=== PATIENT | female | born 1940 | race Caucasian/White ===

== ENCOUNTER 2018-07-19 09:04 | Day surgery (SDC) | payer MEDICARE, OTHER ==
[~2018-07-19 09:04] MED LIST: Midazolam 1 MG/ML 2 ML SDV ONE; Propofol 200 MG/20 ML SDV ONE; Sodium Chloride 0.9% 10 ML Syringe FLUSH PRN
[2018-07-19] MEDS: Lactated Ringers 1,000 ML IV SCH (09:55)
--- NOTE | 2018-07-19 10:21 | PCM.HPR ---
H & P Addendum review - H & P Addendum Review Date of Original H & P: 07/13/18 Date Reviewed: 07/19/18 Time Reviewed: 10:21 Patient was Examined: No Changes
[2018-07-19] MEDS ORDERED: Midazolam 1 MG/ML 2 ML SDV ONE (10:25)
[2018-07-19] MEDS ORDERED: Propofol 200 MG/20 ML SDV ONE (10:25)
--- NOTE | 2018-07-19 10:59 | PCM.OPNOTE ---
- General Post-Op/Procedure Note Date of Surgery/Procedure: 07/19/18 Operative Procedure(s): Colonoscopy Findings: Sig tics Pre Op Diagnosis: Pos Cologuard Post-Op Diagnosis: Same Anesthesia Technique: MAC Primary Surgeon: Atilio Randolph Anesthesia Provider: Krysta Escobar Complications: None Condition: Good
--- NOTE | 2018-07-20 08:34 | OR ---
Date of Procedure: 07/19/2018 PREOPERATIVE DIAGNOSIS: Positive Cologuard. POSTOPERATIVE DIAGNOSIS: Sigmoid diverticulosis. PROCEDURE: Colonoscopy. ANESTHESIA: IV sedation. PROCEDURE IN DETAIL: The patient was brought to the procedure room, where she was placed on the left side and IV sedation administered. Digital rectal exam was performed, which was normal. Colonoscope was inserted and advanced through a tortuous sigmoid colon with moderate difficulty. With pressure on the abdomen, I was able to maneuver through. After I got to the sigmoid colon, I reached the cecum which was confirmed by identifying the appendiceal lumen and the ileocecal valve. Prep was good and surfaces were well visualized. Upon withdrawing the scope, the ascending, transverse, and descending colon were normal in appearance. Sigmoid colon was tortuous with multiple diverticula. Rectum was normal and retroflexion was normal. Air was removed and the scope withdrawn. Patient tolerated the procedure well and returned to recovery in stable condition. No further colon screenings are necessary due to patient's age. TOMASA CASTILLO MD /[id number]
== END 2018-07-19 12:11 | disposition home or self-care (01) ==
LOC: LL.SDS 09:04
PROVIDERS: ATTEND Surgery
DX: K57.30 Diverticulosis of large intestine without perforation or abscess without bleeding (principal); K21.9 Gastro-esophageal reflux disease without esophagitis; R19.5 Other fecal abnormalities; E78.5 Hyperlipidemia, unspecified; I13.0 Hypertensive heart and chronic kidney disease with heart failure and stage 1 through stage 4 chronic kidney disease, or unspecified chronic kidney disease; N18.9 Chronic kidney disease, unspecified; I50.20 Unspecified systolic (congestive) heart failure; Z79.899 Other long term (current) drug therapy; Z88.1 Allergy status to other antibiotic agents; Z88.7 Allergy status to serum and vaccine
CPT/HCPCS: 00811; 45378; J2250; J2704; J7120